=== PATIENT | male | born 1940 | race Caucasian/White ===

== ENCOUNTER 2019-11-03 05:05 | Inpatient (IN) | payer OTHER ==
[2019-11-03] VITALS (50 sets, daily range): BP systolic 63–146; BP diastolic 27–80
[~2019-11-03] VITALS: Ht 167.6 cm; Wt 76.7 kg
[2019-11-03] MEDS ORDERED: SODIUM CHLORIDE 0.9% 1,000 ML IV ONE (05:52)
[2019-11-03] MEDS ORDERED: MORPHINE SULFATE 4 MG/ML CPJ (NOT FOR IM USE) IV STA (05:52)
[2019-11-03] MEDS ORDERED: ONDANSETRON HCL 4MG/2ML INJ IV STA (05:52)
[2019-11-03] MEDS ORDERED: ETOMIDATE 2MG/ML 10ML VIAL IV ONE (06:00)
[2019-11-03] MEDS ORDERED: VECURONIUM BROMIDE 10 MG/VIAL IV ONE (06:00)
[2019-11-03] MEDS ORDERED: PROPOFOL 10MG/ML 100ML 100 ML IV ONE (06:00)
[2019-11-03 06:29] LABS: BASOPHILS % 0.6 % (0.0-2.0); HEMATOCRIT. 44.8 % (42.0-52.0); HEMOGLOBIN. 14.7 g/dL (14.0-18.0); MEAN CORPUSCULAR HEMOGLOBIN 33.5 pg (28.0-32.0); MEAN CORPUSCULAR VOLUME 102.2 fL (80.0-94.0); MEAN PLATELET VOLUME 9.3 fl (7.4-10.4); MONOCYTES % 5.7 % (2.0-8.0); NEUTROPHILS % 84.7 % (40.0-76.0); PLATELET 168 x1000/uL (130-400); RED BLOOD CELL COUNT 4.38 mill/uL (4.7-6.1); RED CELL DISTRIBUTION WIDTH 14.3 % (11.6-14.6)
[2019-11-03 06:37] LABS: CHLORIDE 104 mEq/L (98-107)
[2019-11-03 06:42] LABS: ETHANOL BLOOD 135 mg/dL
[2019-11-03 06:45] LABS: CREATINE KINASE 180 IU/L (39-308)
[2019-11-03 06:47] LABS: *AMPHETAMINES SCREEN URINE NEGATIVE (NEGATIVE); *BARBITURATES SCREEN URINE NEGATIVE (NEGATIVE); *BENZODIAZEPINES SCREEN URINE NEGATIVE (NEGATIVE); *COCAINE SCREEN URINE NEGATIVE (NEGATIVE); CANNABINOID URINE SCREEN NEGATIVE (NEGATIVE); CLARITY URINE CLEAR (CLEAR); COLOR URINE YELLOW (YELLOW); KETONES URINE 1+ (NEGATIVE); LEUKOCYTE ESTERASE URINE NEGATIVE (NEGATIVE); NITRITE URINE NEGATIVE (NEGATIVE); OCCULT BLOOD URINE 2+ (NEGATIVE); OPIATES URINE SCREEN NEGATIVE (NEGATIVE); PROTEIN URINE 1+ (NEGATIVE); SPECIFIC GRAVITY URINE 1.033 (1.005-1.030); UROBILINOGEN URINE 0.2 E.U./dL (0.2-1.0)
[2019-11-03 06:48] LABS: PHENCYCLIDINE URINE SCREEN NEGATIVE (NEGATIVE)
[2019-11-03 06:50] LABS: D-DIMER 18.67 mg/L FEU (<0.50); INR 1.1; PARTIAL THROMBOPLASTIN TIME 26.7 sec (23.4-31.0); PROTHROMBIN TIME 11.1 sec (9.6-11.0)
[2019-11-03 06:55] LABS: METHADONE URINE SCREEN NEGATIVE (NEGATIVE)
[2019-11-03] MEDS ORDERED: MANNITOL 20% 500 ML IV ONE (07:20)
[2019-11-03] MEDS ORDERED: LIDOCAINE HCL/EPINEPHRINE 1%-EPI 1:100,000 20 ML VIAL ONE (07:20)
[2019-11-03] MEDS ORDERED: DEXAMETHASONE 4MG/ML 1ML VIAL ONE (07:20)
[2019-11-03] MEDS ORDERED: THROMBIN (BOVINE) 5000 UNITS/VIAL TOP ONE (07:21)
[2019-11-03] MEDS ORDERED: BACITRACIN 50,000 UNITS/VIAL ONE (07:21)
[2019-11-03] MEDS ORDERED: CEFAZOLIN SODIUM 1000MG/VIAL ONE (07:33)
[2019-11-03] MEDS ORDERED: POTASSIUM CHLORIDE 40MEQ/20ML INJ IV ONE (07:35)
[2019-11-03] MEDS ORDERED: BACITRACIN 15GM TUBE TOP ONE (07:40)
[2019-11-03] MEDS ORDERED: FUROSEMIDE 40MG/4ML VIAL ONE (07:45)
[2019-11-03] MEDS ORDERED: ALBUMIN HUMAN 12.5G/250ML (5%) IV ONE ×2 (08:28→08:29)
[2019-11-03] MEDS ORDERED: HYDROMORPHONE HCL/PF 2MG/ML (OR) ONE ×2 (08:30→08:42)
[2019-11-03] MEDS ORDERED: DEXT 5%/LACTATED RINGERS 1,000 ML IV SCH (08:45)
[2019-11-03] MEDS ORDERED: LEVETIRACETAM 500 MG in SODIUM CHLORIDE 0.9% 100 ML IV SCH (08:45)
[2019-11-03] MEDS ORDERED: NICARDIPINE 100 MG in SODIUM CHLORIDE 0.9% 60 ML IV PRN ×2 (09:15→10:00)
[2019-11-03] MEDS ORDERED: DEXTROSE 50% WATER 50ML SYRINGE IV PRN ×4 (09:15→22:45)
[2019-11-03] MEDS ORDERED: IPRATROPIUM/ALBUTEROL 0.5-3(2.5)MG/3ML NEB HHN PRN (09:15)
[2019-11-03] MEDS ORDERED: ONDANSETRON HCL 4MG/2ML INJ IV PRN (09:15)
[2019-11-03] MEDS ORDERED: SODIUM CHLORIDE 0.9% 500 ML IV ONE ×2 (09:23→10:04)
[2019-11-03] MEDS ORDERED: BLOOD SUGAR DIAGNOSTIC STRIP TEST SCH (09:30)
[2019-11-03] MEDS ORDERED: INSULIN LISPRO 100 UNITS/ML SUBCUT SCH (09:30)
[2019-11-03 10:14] LABS: BG BASE EXCESS -19.4 mmol/L (-2.0-2.0); BG CARBOXYHEMOGLOBIN 0.3 % (0.5-1.5); BG DEOXYHEMOGLOBIN 1.4 % (0.0-5.0); BG FRACTION INSPIRED OXYGEN 100; BG HCO3 ACT 9.2 mmol/L (22.0-26.0); BG METHEMOGLOBIN 0.3 % (0.0-1.5); BG OXYGEN SATURATION 98.6 % (92.0-98.5); BG PCO2 31.1 mmHg (35.0-45.0); BG PH 7.089 (7.350-7.450); BG PO2 216.3 mmHg (75.0-100.0); BG SAMPLE SITE RIGHT RADIAL; BG TIDAL VOLUME(mL) 500 mL; BG VENT MODE VENT - A/C; BG VENT RATE 14 set
[2019-11-03] MEDS ORDERED: ALBUMIN HUMAN 25GM/500ML (5%) IV NR (10:15)
[2019-11-03] MEDS ORDERED: NOREPINEPHRINE 4 MG in DEXT 5% WATER 246 ML IV PRN ×2 (10:15→13:00)
[2019-11-03] MEDS ORDERED: SODIUM BICARBONATE 8.4% 1 MEQ/ML 50ML SYR IV NR (10:15)
[2019-11-03] MEDS ORDERED: DEXT IV SCH ×3 (10:18→12:00)
[2019-11-03] MEDS ORDERED: LACTATED RINGERS IV SCH ×3 (10:18→12:00)
[2019-11-03] MEDS ORDERED: SODIUM BICARBONATE IV SCH ×3 (10:18→12:00)
[2019-11-03] MEDS ORDERED: SODIUM BICARBONATE 8.4% 1 MEQ/ML 50ML SYR IV ONE (10:21)
[2019-11-03] MEDS ORDERED: CALCIUM CHLORIDE IV NR (10:30)
[2019-11-03] MEDS ORDERED: DEXT 5% IV NR (10:30)
[2019-11-03] MEDS ORDERED: NOREPINEPHRINE 4MG/250ML PMX 250 ML IV PRN (10:30)
[2019-11-03] MEDS ORDERED: WATER IV NR (10:30)
[2019-11-03] MEDS ORDERED: NOREPINEPHRINE 16 MG in DEXT 5% WATER 234 ML IV PRN (10:45)
[2019-11-03] MEDS ORDERED: ALBUMIN HUMAN 12.5G/250ML (5%) IV NR (10:45)
[2019-11-03] MEDS: LEVETIRACETAM 500MG PREMIX 100 ML IV SCH ×2 (11:30→21:56)
[2019-11-03] MEDS ORDERED: INSULIN REGULAR (DRIP) 100 UNITS in SODIUM CHLORIDE 0.9% 99 ML IV PRN (11:30)
[2019-11-03] MEDS ORDERED: INSULIN REGULAR (DRIP) 100 UNITS in SODIUM CHLORIDE 0.9% 100 ML IV SCH (11:35)
[2019-11-03 11:46] LABS: BG BASE EXCESS -15.2 mmol/L (-2.0-2.0); BG CARBOXYHEMOGLOBIN 0.2 % (0.5-1.5); BG DEOXYHEMOGLOBIN 2.6 % (0.0-5.0); BG FRACTION INSPIRED OXYGEN 80; BG HCO3 ACT 10.6 mmol/L (22.0-26.0); BG METHEMOGLOBIN 0.7 % (0.0-1.5); BG OXYGEN SATURATION 97.4 % (92.0-98.5); BG OXYHEMOGLOBIN 96.5 % (94.0-97.0); BG PCO2 25.4 mmHg (35.0-45.0); BG PH 7.237 (7.350-7.450); BG PO2 120.9 mmHg (75.0-100.0); BG SAMPLE SITE A-LINE; BG TIDAL VOLUME(mL) 500 mL; BG TOTAL HEMOGLOBIN 11.5 g/dL (12.0-18.0); BG VENT MODE VENT - A/C; BG VENT RATE 18 set
[2019-11-03] MEDS ORDERED: SODIUM BICARBONATE 100 MEQ in SODIUM CHLORIDE 0.45% 1,000 ML IV SCH (12:00)
[2019-11-03] MEDS: BLOOD SUGAR DIAGNOSTIC STRIP TEST SCH ×9 (12:30→20:30)
[2019-11-03 12:57] LABS: CHLORIDE 114 mEq/L (98-107)
[2019-11-03 13:06] LABS: CREATINE KINASE 173 IU/L (39-308)
[2019-11-03 13:07] LABS: CREATINE KINASE MB FRACTION 4.8 ng/mL (0.5-3.6)
[2019-11-03] MEDS: CEFAZOLIN 1000MG PREMIX 50 ML IV SCH ×2 (14:00→21:39)
[2019-11-03] MEDS ORDERED: CEFAZOLIN SODIUM 1000MG/VIAL IV SCH (14:00)
[2019-11-03] MEDS: FAMOTIDINE 20MG/2ML VIAL IV SCH (17:00)
[2019-11-03 17:38] LABS: BG BASE EXCESS -4.2 mmol/L (-2.0-2.0); BG DEOXYHEMOGLOBIN 1.8 % (0.0-5.0); BG FRACTION INSPIRED OXYGEN 80; BG HCO3 ACT 18.7 mmol/L (22.0-26.0); BG METHEMOGLOBIN 0.1 % (0.0-1.5); BG OXYGEN SATURATION 98.2 % (92.0-98.5); BG OXYHEMOGLOBIN 98.1 % (94.0-97.0); BG PCO2 27.7 mmHg (35.0-45.0); BG PH 7.448 (7.350-7.450); BG PO2 132.2 mmHg (75.0-100.0); BG SAMPLE SITE A-LINE; BG TIDAL VOLUME(mL) 500 mL; BG TOTAL HEMOGLOBIN 11.2 g/dL (12.0-18.0); BG VENT MODE VENT - A/C; BG VENT RATE 18 set
[2019-11-03] MEDS: MORPHINE SULFATE 4 MG/ML CPJ (NOT FOR IM USE) IV PRN (18:45)
[2019-11-03 21:05] LABS: CHLORIDE 118 mEq/L (98-107)
[2019-11-03 21:14] LABS: CREATINE KINASE 255 IU/L (39-308)
[2019-11-03 21:16] LABS: CREATINE KINASE MB FRACTION 5.4 ng/mL (0.5-3.6)
[2019-11-03 21:22] LABS: PHOSPHORUS 0.8 mg/dL (2.5-4.9)
[2019-11-03] MEDS ORDERED: IOHEXOL-350 100 ML BOTTLE ONE (21:57)
[2019-11-04] VITALS (92 sets, daily range): BP systolic 90–165; BP diastolic 28–79
[2019-11-04] MEDS: BLOOD SUGAR DIAGNOSTIC STRIP TEST SCH ×7 (00:55→23:23)
[2019-11-04] MEDS ORDERED: POTASSIUM PHOS,M-BASIC-D-BASIC 20 MMOL in DEXT 5% WATER 243.3333 ML IV NR (01:00)
[2019-11-04] MEDS: INSULIN LISPRO 100 UNITS/ML SUBCUT SCH ×7 (01:01→23:26)
[2019-11-04 05:58] LABS: CHLORIDE 116 mEq/L (98-107)
[2019-11-04 06:08] LABS: BASOPHILS % 0.2 % (0.0-2.0); HEMATOCRIT. 30.2 % (42.0-52.0); HEMOGLOBIN. 10.3 g/dL (14.0-18.0); LYMPHOCYTES % 9.7 % (20.0-50.0); MEAN CORPUSCULAR HEMOGLOBIN 33.8 pg (28.0-32.0); MEAN CORPUSCULAR VOLUME 99.3 fL (80.0-94.0); MEAN PLATELET VOLUME 9.2 fl (7.4-10.4); MONOCYTES % 4.8 % (2.0-8.0); NEUTROPHILS % 85.3 % (40.0-76.0); PLATELET 117 x1000/uL (130-400); RED BLOOD CELL COUNT 3.04 mill/uL (4.7-6.1); RED CELL DISTRIBUTION WIDTH 14.3 % (11.6-14.6)
[2019-11-04 06:12] LABS: PHOSPHORUS 3.1 mg/dL (2.5-4.9)
[2019-11-04] MEDS: CEFAZOLIN 1000MG PREMIX 50 ML IV SCH (06:45)
[2019-11-04] MEDS: LEVETIRACETAM 500MG PREMIX 100 ML IV SCH ×2 (09:14→20:37)
[2019-11-04] MEDS: POTASSIUM CHLORIDE IV SCH ×2 (09:14→20:58)
[2019-11-04] MEDS: SODIUM BICARBONATE IV SCH ×2 (09:14→20:58)
[2019-11-04] MEDS: FAMOTIDINE 20MG/2ML VIAL IV SCH (09:14)
[2019-11-04] MEDS: [UNRECOGNIZED DRUG - OTHER] IV SCH ×2 (09:14→20:58)
[2019-11-04 10:02] LABS: BG BASE EXCESS -4.7 mmol/L (-2.0-2.0); BG CARBOXYHEMOGLOBIN 0.3 % (0.5-1.5); BG FRACTION INSPIRED OXYGEN 80; BG HCO3 ACT 19.1 mmol/L (22.0-26.0); BG METHEMOGLOBIN 0.3 % (0.0-1.5); BG OXYHEMOGLOBIN 97.4 % (94.0-97.0); BG PCO2 30.4 mmHg (35.0-45.0); BG PH 7.415 (7.350-7.450); BG PO2 141.9 mmHg (75.0-100.0); BG SAMPLE SITE A-LINE; BG TIDAL VOLUME(mL) 800 mL; BG TOTAL HEMOGLOBIN 9.6 g/dL (12.0-18.0); BG VENT MODE VENT - A/C; BG VENT RATE 18 set
[2019-11-04] MEDS ORDERED: VANCOMYCIN 1 G PREMIX 200 ML IV NR (12:00)
[2019-11-04 13:31] LABS: CHLORIDE 116 mEq/L (98-107)
[2019-11-04] MEDS ORDERED: PIPERACILLIN/TAZOBACTAM 3.375 G in DEXT 5% WATER 100 ML IV SCH (14:00)
[2019-11-04] MEDS ORDERED: INSULIN GLARGINE UD 100 UNITS/ML SYR SUBCUT NR (14:00)
[2019-11-04] MEDS ORDERED: VANCOMYCIN 500 MG PREMIX 100 ML IV SCH (16:00)
[2019-11-04] MEDS: CEFTRIAXONE 1,000 MG in DEXTROSE 5% WATER 50 ML IV SCH (16:40)
[2019-11-04] MEDS: METRONIDAZOLE 500MG TABLET PO SCH (20:37)
[2019-11-05] VITALS (93 sets, daily range): BP systolic 93–154; BP diastolic 41–78
[2019-11-05] MEDS ORDERED: VANCOMYCIN 750 MG PREMIX 150 ML IV SCH
[2019-11-05] MEDS: BLOOD SUGAR DIAGNOSTIC STRIP TEST SCH ×6 (04:00→23:09)
[2019-11-05] MEDS: INSULIN LISPRO 100 UNITS/ML SUBCUT SCH ×6 (04:32→23:25)
[2019-11-05 05:21] LABS: CHLORIDE 117 mEq/L (98-107)
[2019-11-05] MEDS: VANCOMYCIN 1500MG in DEXTROSE 5% WATER 250ML IV SCH ×2 (05:24→23:10)
[2019-11-05 05:26] LABS: BASOPHILS % 0.2 % (0.0-2.0); HEMATOCRIT. 28.4 % (42.0-52.0); HEMOGLOBIN. 9.8 g/dL (14.0-18.0); LYMPHOCYTES % 10.5 % (20.0-50.0); MEAN CORPUSCULAR HEMOGLOBIN 34.8 pg (28.0-32.0); MEAN CORPUSCULAR VOLUME 100.5 fL (80.0-94.0); MEAN PLATELET VOLUME 8.9 fl (7.4-10.4); MONOCYTES % 4.2 % (2.0-8.0); NEUTROPHILS % 85.1 % (40.0-76.0); PLATELET 93 x1000/uL (130-400); RED BLOOD CELL COUNT 2.82 mill/uL (4.7-6.1); RED CELL DISTRIBUTION WIDTH 14.9 % (11.6-14.6)
[2019-11-05] MEDS: POTASSIUM CHLORIDE IV SCH (07:22)
[2019-11-05] MEDS: SODIUM BICARBONATE IV SCH (07:22)
[2019-11-05] MEDS: [UNRECOGNIZED DRUG - OTHER] IV SCH (07:22)
[2019-11-05] MEDS: LEVETIRACETAM 500MG PREMIX 100 ML IV SCH ×2 (08:35→20:07)
[2019-11-05] MEDS: METRONIDAZOLE 500MG TABLET PO SCH ×2 (08:35→20:07)
[2019-11-05] MEDS: FAMOTIDINE 20MG/2ML VIAL IV SCH (08:35)
[2019-11-05 09:39] LABS: BG BASE EXCESS -0.8 mmol/L (-2.0-2.0); BG CARBOXYHEMOGLOBIN 0.3 % (0.5-1.5); BG DEOXYHEMOGLOBIN 2.7 % (0.0-5.0); BG FRACTION INSPIRED OXYGEN 60; BG HCO3 ACT 22.7 mmol/L (22.0-26.0); BG METHEMOGLOBIN 0.2 % (0.0-1.5); BG OXYGEN SATURATION 97.3 % (92.0-98.5); BG OXYHEMOGLOBIN 96.8 % (94.0-97.0); BG PCO2 33.3 mmHg (35.0-45.0); BG PH 7.452 (7.350-7.450); BG PO2 104.7 mmHg (75.0-100.0); BG SAMPLE SITE RIGHT RADIAL; BG TIDAL VOLUME(mL) 500 mL; BG TOTAL HEMOGLOBIN 9.9 g/dL (12.0-18.0); BG VENT MODE VENT - A/C; BG VENT RATE 18 set
[2019-11-05] MEDS: INSULIN GLARGINE UD 100 UNITS/ML SYR SUBCUT SCH (09:56)
[2019-11-05] MEDS: CEFTRIAXONE 1,000 MG in DEXTROSE 5% WATER 50 ML IV SCH (16:36)
[2019-11-06] VITALS (94 sets, daily range): BP systolic 101–139; BP diastolic 42–74
[2019-11-06] MEDS: BLOOD SUGAR DIAGNOSTIC STRIP TEST SCH ×6 (04:00→23:23)
[2019-11-06] MEDS: INSULIN LISPRO 100 UNITS/ML SUBCUT SCH ×6 (04:45→23:23)
[2019-11-06 05:42] LABS: HEMATOCRIT 30.5 % (42.0-52.0); HEMOGLOBIN 10.3 g/dL (14.0-18.0); MEAN CORPUSCULAR HEMOGLOBIN 34.2 pg (28.0-32.0); MEAN CORPUSCULAR VOLUME 100.9 fL (80.0-94.0); PLATELET 105 x1000/uL (130-400); RED BLOOD CELL COUNT 3.02 mill/uL (4.7-6.1); RED CELL DISTRIBUTION WIDTH 14.7 % (11.6-14.6)
[2019-11-06 05:46] LABS: CHLORIDE 116 mEq/L (98-107)
[2019-11-06] MEDS: FAMOTIDINE 20MG/2ML VIAL IV SCH (08:35)
[2019-11-06] MEDS: METRONIDAZOLE 500MG TABLET PO SCH ×2 (08:35→20:02)
[2019-11-06] MEDS: LEVETIRACETAM 500MG PREMIX 100 ML IV SCH ×2 (08:35→20:02)
[2019-11-06] MEDS: INSULIN GLARGINE UD 100 UNITS/ML SYR SUBCUT SCH ×2 (11:03→21:40)
[2019-11-06] MEDS: VANCOMYCIN 1500MG in DEXTROSE 5% WATER 250ML IV SCH ×2 (13:05→22:17)
[2019-11-06 14:20] LABS: BG BASE EXCESS -0.3 mmol/L (-2.0-2.0); BG CARBOXYHEMOGLOBIN 0.3 % (0.5-1.5); BG DEOXYHEMOGLOBIN 4.6 % (0.0-5.0); BG FRACTION INSPIRED OXYGEN 60; BG HCO3 ACT 23.3 mmol/L (22.0-26.0); BG METHEMOGLOBIN 0.3 % (0.0-1.5); BG OXYGEN SATURATION 95.4 % (92.0-98.5); BG OXYHEMOGLOBIN 94.8 % (94.0-97.0); BG PCO2 34.4 mmHg (35.0-45.0); BG PH 7.449 (7.350-7.450); BG PO2 80.5 mmHg (75.0-100.0); BG PRESSURE SUPPORT 10; BG SAMPLE SITE RIGHT RADIAL; BG TOTAL HEMOGLOBIN 10.4 g/dL (12.0-18.0); BG VENT MODE VENT - CPAP
[2019-11-06] MEDS: CEFTRIAXONE 1,000 MG in DEXTROSE 5% WATER 50 ML IV SCH (17:37)
[2019-11-07] VITALS (65 sets, daily range): BP systolic 94–144; BP diastolic 49–102
[2019-11-07] MEDS: INSULIN LISPRO 100 UNITS/ML SUBCUT SCH ×6 (03:27→23:36)
[2019-11-07] MEDS: BLOOD SUGAR DIAGNOSTIC STRIP TEST SCH ×6 (03:28→23:34)
[2019-11-07 06:01] LABS: CHLORIDE 121 mEq/L (98-107)
[2019-11-07 07:43] LABS: HEMATOCRIT 32.6 % (42.0-52.0); MEAN CORPUSCULAR HEMOGLOBIN 34.1 pg (28.0-32.0); MEAN CORPUSCULAR VOLUME 101.4 fL (80.0-94.0); PLATELET 119 x1000/uL (130-400); RED BLOOD CELL COUNT 3.22 mill/uL (4.7-6.1); RED CELL DISTRIBUTION WIDTH 14.7 % (11.6-14.6)
[2019-11-07 09:14] LABS: BG BASE EXCESS -0.9 mmol/L (-2.0-2.0); BG CARBOXYHEMOGLOBIN 0.2 % (0.5-1.5); BG DEOXYHEMOGLOBIN 4.8 % (0.0-5.0); BG FRACTION INSPIRED OXYGEN 60; BG HCO3 ACT 22.2 mmol/L (22.0-26.0); BG METHEMOGLOBIN 0.3 % (0.0-1.5); BG OXYGEN SATURATION 95.2 % (92.0-98.5); BG OXYHEMOGLOBIN 94.7 % (94.0-97.0); BG PCO2 31.4 mmHg (35.0-45.0); BG PEEP (cmH2O) 0 cmH2O; BG PH 7.468 (7.350-7.450); BG PO2 76.8 mmHg (75.0-100.0); BG SAMPLE SITE RIGHT RADIAL; BG TIDAL VOLUME(mL) 500 mL; BG TOTAL HEMOGLOBIN 10.5 g/dL (12.0-18.0); BG VENT MODE VENT - A/C; BG VENT RATE 18 set
[2019-11-07] MEDS: METRONIDAZOLE 500MG TABLET PO SCH ×2 (09:49→20:48)
[2019-11-07] MEDS: LEVETIRACETAM 500MG PREMIX 100 ML IV SCH ×2 (09:49→20:48)
[2019-11-07] MEDS: FAMOTIDINE 20MG/2ML VIAL IV SCH (09:49)
[2019-11-07] MEDS: INSULIN GLARGINE UD 100 UNITS/ML SYR SUBCUT SCH ×2 (11:17→20:49)
[2019-11-07] MEDS: VANCOMYCIN 1500MG in DEXTROSE 5% WATER 250ML IV SCH ×2 (11:21→22:24)
[2019-11-07] MEDS: CEFTRIAXONE 1,000 MG in DEXTROSE 5% WATER 50 ML IV SCH (17:17)
[2019-11-07] MEDS: LEVOFLOXACIN 500MG TABLET PO SCH (17:20)
[2019-11-07] MEDS: MORPHINE SULFATE 4 MG/ML CPJ (NOT FOR IM USE) IV PRN ×3 (18:14→22:24)
[2019-11-07] MEDS: LORAZEPAM 2MG/ML CPJ IV PRN (20:50)
[2019-11-07 22:04] LABS: BG CARBOXYHEMOGLOBIN 0.3 % (0.5-1.5); BG DEOXYHEMOGLOBIN 3.9 % (0.0-5.0); BG FRACTION INSPIRED OXYGEN 100; BG HCO3 ACT 24.8 mmol/L (22.0-26.0); BG METHEMOGLOBIN 0.3 % (0.0-1.5); BG OXYGEN SATURATION 96.1 % (92.0-98.5); BG OXYHEMOGLOBIN 95.5 % (94.0-97.0); BG PCO2 36.7 mmHg (35.0-45.0); BG PH 7.448 (7.350-7.450); BG PO2 83.1 mmHg (75.0-100.0); BG SAMPLE SITE RIGHT BRACHIAL; BG TIDAL VOLUME(mL) 500 mL; BG TOTAL HEMOGLOBIN 11.3 g/dL (12.0-18.0); BG VENT MODE VENT - A/C; BG VENT RATE 18 set
[2019-11-07] MEDS: ACETAMINOPHEN 650MG/20.3ML UDC NG PRN (22:44)
[2019-11-08] VITALS (73 sets, daily range): BP systolic 96–147; BP diastolic 45–79
[2019-11-08] MEDS: IPRATROPIUM BROMIDE (0.02%) 0.5MG/2.5ML NEB HHN SCH ×4 (02:11→19:52)
[2019-11-08] MEDS: BLOOD SUGAR DIAGNOSTIC STRIP TEST SCH ×6 (04:14→23:42)
[2019-11-08] MEDS: INSULIN LISPRO 100 UNITS/ML SUBCUT SCH ×6 (04:28→23:42)
[2019-11-08] MEDS: LORAZEPAM 2MG/ML CPJ IV PRN (04:56)
[2019-11-08 05:53] LABS: HEMATOCRIT 31.9 % (42.0-52.0); HEMOGLOBIN 10.2 g/dL (14.0-18.0); MEAN CORPUSCULAR HEMOGLOBIN 33.2 pg (28.0-32.0); MEAN CORPUSCULAR VOLUME 103.5 fL (80.0-94.0); PLATELET 149 x1000/uL (130-400); RED BLOOD CELL COUNT 3.09 mill/uL (4.7-6.1); RED CELL DISTRIBUTION WIDTH 14.8 % (11.6-14.6)
[2019-11-08] MEDS: LEVETIRACETAM 500MG PREMIX 100 ML IV SCH ×2 (09:54→21:18)
[2019-11-08] MEDS: FAMOTIDINE 20MG/2ML VIAL IV SCH (09:55)
[2019-11-08] MEDS: METRONIDAZOLE 500MG TABLET PO SCH ×2 (09:55→21:18)
[2019-11-08] MEDS: VANCOMYCIN 1500MG in DEXTROSE 5% WATER 250ML IV SCH (11:08)
[2019-11-08] MEDS: INSULIN GLARGINE UD 100 UNITS/ML SYR SUBCUT SCH ×2 (11:10→21:54)
[2019-11-08] MEDS: LEVOFLOXACIN 500MG TABLET PO SCH (11:14)
[2019-11-08 12:02] LABS: BG BASE EXCESS -2.7 mmol/L (-2.0-2.0); BG CARBOXYHEMOGLOBIN 0.3 % (0.5-1.5); BG DEOXYHEMOGLOBIN 3.3 % (0.0-5.0); BG FRACTION INSPIRED OXYGEN 100; BG HCO3 ACT 21.7 mmol/L (22.0-26.0); BG METHEMOGLOBIN 0.3 % (0.0-1.5); BG OXYGEN SATURATION 96.7 % (92.0-98.5); BG OXYHEMOGLOBIN 96.1 % (94.0-97.0); BG PCO2 36.3 mmHg (35.0-45.0); BG PH 7.395 (7.350-7.450); BG SAMPLE SITE RIGHT BRACHIAL; BG TIDAL VOLUME(mL) 500 mL; BG TOTAL HEMOGLOBIN 10.3 g/dL (12.0-18.0); BG VENT MODE VENT - A/C; BG VENT RATE 18 set
[2019-11-08] MEDS: CEFTRIAXONE 1,000 MG in DEXTROSE 5% WATER 50 ML IV SCH (17:15)
[2019-11-09] VITALS (94 sets, daily range): BP systolic 98–158; BP diastolic 49–76
[2019-11-09] MEDS: IPRATROPIUM BROMIDE (0.02%) 0.5MG/2.5ML NEB HHN SCH ×4 (05:21→20:31)
[2019-11-09 05:37] LABS: BASOPHILS % 0.5 % (0.0-2.0); EOSINOPHILS % 1.2 % (0.0-5.0); HEMATOCRIT. 31.2 % (42.0-52.0); HEMOGLOBIN. 10.2 g/dL (14.0-18.0); LYMPHOCYTES % 9.8 % (20.0-50.0); MEAN CORPUSCULAR HEMOGLOBIN 33.7 pg (28.0-32.0); MEAN CORPUSCULAR VOLUME 102.6 fL (80.0-94.0); MEAN PLATELET VOLUME 9.6 fl (7.4-10.4); MONOCYTES % 5.5 % (2.0-8.0); PLATELET 187 x1000/uL (130-400); RED BLOOD CELL COUNT 3.04 mill/uL (4.7-6.1); RED CELL DISTRIBUTION WIDTH 14.9 % (11.6-14.6)
[2019-11-09] MEDS: BLOOD SUGAR DIAGNOSTIC STRIP TEST SCH ×4 (05:46→23:58)
[2019-11-09] MEDS: INSULIN LISPRO 100 UNITS/ML SUBCUT SCH ×5 (05:46→23:58)
[2019-11-09] MEDS: LORAZEPAM 2MG/ML CPJ IV PRN ×2 (08:02→16:30)
[2019-11-09] MEDS: METRONIDAZOLE 500MG TABLET PO SCH ×2 (08:03→20:26)
[2019-11-09] MEDS: ACETAMINOPHEN 650MG/20.3ML UDC NG PRN ×2 (08:03→12:37)
[2019-11-09] MEDS: FAMOTIDINE 20MG/2ML VIAL IV SCH (08:03)
[2019-11-09] MEDS: LEVETIRACETAM 500MG PREMIX 100 ML IV SCH ×2 (08:03→20:25)
[2019-11-09] MEDS ORDERED: LEVOFLOXACIN 250MG TABLET PO SCH (11:00)
[2019-11-09] MEDS: INSULIN GLARGINE UD 100 UNITS/ML SYR SUBCUT SCH ×2 (11:11→21:28)
[2019-11-09] MEDS ORDERED: SODIUM CHLORIDE 0.45% 500 ML IV NR (15:15)
[2019-11-09] MEDS ORDERED: SODIUM CHLORIDE 0.9% 250 ML IV ONE (16:30)
[2019-11-09] MEDS ORDERED: VANCOMYCIN 1 G PREMIX 200 ML IV NR (17:00)
[2019-11-09] MEDS: CEFAZOLIN 2,000 MG in DEXT 5% WATER 100 ML IV SCH (18:22)
[2019-11-09 20:36] LABS: CLARITY URINE CLOUDY (CLEAR); COLOR URINE YELLOW (YELLOW); KETONES URINE NEGATIVE (NEGATIVE); LEUKOCYTE ESTERASE URINE NEGATIVE (NEGATIVE); NITRITE URINE NEGATIVE (NEGATIVE); OCCULT BLOOD URINE 3+ (NEGATIVE); PROTEIN URINE 1+ (NEGATIVE); SPECIFIC GRAVITY URINE 1.016 (1.005-1.030); UROBILINOGEN URINE 0.2 E.U./dL (0.2-1.0)
[2019-11-10] VITALS (91 sets, daily range): BP systolic 107–165; BP diastolic 53–79
[2019-11-10] MEDS: IPRATROPIUM BROMIDE (0.02%) 0.5MG/2.5ML NEB HHN SCH ×4 (02:15→20:26)
[2019-11-10] MEDS: HYDRALAZINE 20MG/ML VIAL IV PRN ×2 (04:54→23:09)
[2019-11-10] MEDS: INSULIN LISPRO 100 UNITS/ML SUBCUT SCH ×4 (05:31→23:08)
[2019-11-10] MEDS: BLOOD SUGAR DIAGNOSTIC STRIP TEST SCH ×4 (05:31→23:15)
[2019-11-10] MEDS: LORAZEPAM 2MG/ML CPJ IV PRN ×4 (05:47→23:08)
[2019-11-10 05:48] LABS: HEMATOCRIT. 26.7 % (42.0-52.0); HEMOGLOBIN. 8.6 g/dL (14.0-18.0); MEAN PLATELET VOLUME 9.7 fl (7.4-10.4); PLATELET 173 x1000/uL (130-400); RED BLOOD CELL COUNT 2.62 mill/uL (4.7-6.1); RED CELL DISTRIBUTION WIDTH 15.1 % (11.6-14.6)
[2019-11-10] MEDS: CEFAZOLIN 2,000 MG in DEXT 5% WATER 100 ML IV SCH ×2 (06:29→17:48)
[2019-11-10] MEDS: MORPHINE SULFATE 4 MG/ML CPJ (NOT FOR IM USE) IV PRN ×2 (06:35→21:36)
[2019-11-10] MEDS: LEVETIRACETAM 500MG PREMIX 100 ML IV SCH ×2 (09:19→21:30)
[2019-11-10] MEDS: FAMOTIDINE 20MG/2ML VIAL IV SCH (09:19)
[2019-11-10 09:46] LABS: PLATELET ESTIMATE NORMAL
[2019-11-10] MEDS: INSULIN GLARGINE UD 100 UNITS/ML SYR SUBCUT SCH ×2 (10:17→23:08)
[2019-11-10 15:12] LABS: BG BASE EXCESS -5.9 mmol/L (-2.0-2.0); BG CARBOXYHEMOGLOBIN 0.3 % (0.5-1.5); BG DEOXYHEMOGLOBIN 1.1 % (0.0-5.0); BG FRACTION INSPIRED OXYGEN 90; BG HCO3 ACT 18.1 mmol/L (22.0-26.0); BG METHEMOGLOBIN 0.5 % (0.0-1.5); BG OXYGEN SATURATION 98.9 % (92.0-98.5); BG OXYHEMOGLOBIN 98.1 % (94.0-97.0); BG PCO2 30.1 mmHg (35.0-45.0); BG PH 7.396 (7.350-7.450); BG PO2 197.1 mmHg (75.0-100.0); BG SAMPLE SITE RIGHT BRACHIAL; BG TIDAL VOLUME(mL) 500 mL; BG TOTAL HEMOGLOBIN 10.1 g/dL (12.0-18.0); BG VENT MODE VENT - A/C; BG VENT RATE 16 set
[2019-11-10] MEDS: SODIUM CHLORIDE 0.45% 1,000 ML IV SCH (15:39)
[2019-11-11] VITALS (93 sets, daily range): BP systolic 92–158; BP diastolic 20–72
[2019-11-11] MEDS ORDERED: FUROSEMIDE 40MG/4ML VIAL IVP SCH (00:30)
[2019-11-11] MEDS: SODIUM CHLORIDE 0.45% 1,000 ML IV SCH (00:42)
[2019-11-11] MEDS ORDERED: DIGOXIN 500MCG/2ML AMP IV SCH (01:00)
[2019-11-11] MEDS: MORPHINE SULFATE 4 MG/ML CPJ (NOT FOR IM USE) IV PRN ×2 (02:07→14:52)
[2019-11-11] MEDS: ACETAMINOPHEN 650MG/20.3ML UDC NG PRN ×2 (02:08→20:24)
[2019-11-11] MEDS: IPRATROPIUM BROMIDE (0.02%) 0.5MG/2.5ML NEB HHN SCH ×3 (02:15→20:16)
[2019-11-11 05:41] LABS: BASOPHILS % 0.4 % (0.0-2.0); EOSINOPHILS % 0.7 % (0.0-5.0); HEMATOCRIT. 31.9 % (42.0-52.0); HEMOGLOBIN. 10.3 g/dL (14.0-18.0); LYMPHOCYTES % 7.8 % (20.0-50.0); MEAN PLATELET VOLUME 9.7 fl (7.4-10.4); MONOCYTES % 5.1 % (2.0-8.0); PLATELET 229 x1000/uL (130-400); RED BLOOD CELL COUNT 3.13 mill/uL (4.7-6.1); RED CELL DISTRIBUTION WIDTH 15.5 % (11.6-14.6)
[2019-11-11] MEDS: BLOOD SUGAR DIAGNOSTIC STRIP TEST SCH ×4 (06:00→23:24)
[2019-11-11] MEDS: INSULIN LISPRO 100 UNITS/ML SUBCUT SCH ×4 (06:09→23:24)
[2019-11-11] MEDS: CEFAZOLIN 2,000 MG in DEXT 5% WATER 100 ML IV SCH ×2 (06:11→17:54)
[2019-11-11] MEDS: FAMOTIDINE 20MG/2ML VIAL IV SCH (09:40)
[2019-11-11] MEDS: LEVETIRACETAM 500MG PREMIX 100 ML IV SCH ×2 (09:40→20:15)
[2019-11-11 09:56] LABS: BG BASE EXCESS -6.4 mmol/L (-2.0-2.0); BG CARBOXYHEMOGLOBIN 0.3 % (0.5-1.5); BG DEOXYHEMOGLOBIN 3.1 % (0.0-5.0); BG FRACTION INSPIRED OXYGEN 90; BG HCO3 ACT 18.4 mmol/L (22.0-26.0); BG METHEMOGLOBIN 0.3 % (0.0-1.5); BG OXYGEN SATURATION 96.9 % (92.0-98.5); BG OXYHEMOGLOBIN 96.3 % (94.0-97.0); BG PCO2 34.2 mmHg (35.0-45.0); BG PH 7.349 (7.350-7.450); BG PO2 95.5 mmHg (75.0-100.0); BG SAMPLE SITE RIGHT RADIAL; BG TIDAL VOLUME(mL) 500 mL; BG TOTAL HEMOGLOBIN 10.4 g/dL (12.0-18.0); BG VENT MODE VENT - A/C; BG VENT RATE 16 set
[2019-11-11] MEDS ORDERED: SODIUM BICARBONATE 8.4% 1 MEQ/ML 50ML SYR IV NR (11:00)
[2019-11-11] MEDS ORDERED: LEVOFLOXACIN 250MG TABLET PO SCH (11:00)
[2019-11-11] MEDS ORDERED: SODIUM POLYSTYRENE SULFONATE 15 G/60 ML BOT PO NR (11:00)
[2019-11-11] MEDS ORDERED: DEXTROSE 50% WATER 50ML SYRINGE IV NR (11:00)
[2019-11-11] MEDS ORDERED: CALCIUM GLUCONATE 1,000 MG in DEXT 5% WATER 90 ML IV SCH (11:00)
[2019-11-11] MEDS ORDERED: INSULIN REGULAR (HUMULIN R) 300UNITS/3ML IV NR (11:00)
[2019-11-11] MEDS: INSULIN GLARGINE UD 100 UNITS/ML SYR SUBCUT SCH ×2 (11:12→21:22)
[2019-11-11] MEDS: LORAZEPAM 2MG/ML CPJ IV PRN (11:24)
[2019-11-11] MEDS: DILTIAZEM HCL 30MG TABLET PO SCH ×2 (13:05→21:09)
[2019-11-11 14:39] LABS: BG BASE EXCESS -5.2 mmol/L (-2.0-2.0); BG CARBOXYHEMOGLOBIN 0.3 % (0.5-1.5); BG DEOXYHEMOGLOBIN 3.2 % (0.0-5.0); BG FRACTION INSPIRED OXYGEN 90; BG HCO3 ACT 19.4 mmol/L (22.0-26.0); BG METHEMOGLOBIN 0.5 % (0.0-1.5); BG OXYGEN SATURATION 96.8 % (92.0-98.5); BG PCO2 34.1 mmHg (35.0-45.0); BG PH 7.373 (7.350-7.450); BG PO2 98.8 mmHg (75.0-100.0); BG SAMPLE SITE RIGHT RADIAL; BG TIDAL VOLUME(mL) 500 mL; BG TOTAL HEMOGLOBIN 9.8 g/dL (12.0-18.0); BG VENT MODE VENT - A/C; BG VENT RATE 16 set
[2019-11-11] MEDS ORDERED: DILTIAZEM HCL 5MG/ML 5ML VIAL IV NR ×2 (16:15)
[2019-11-11] MEDS: METOCLOPRAMIDE HCL 10MG/2ML VIAL IV SCH ×2 (18:27→23:12)
[2019-11-12] VITALS (69 sets, daily range): BP systolic 98–142; BP diastolic 39–85
[2019-11-12] MEDS: IPRATROPIUM BROMIDE (0.02%) 0.5MG/2.5ML NEB HHN SCH ×4 (03:18→20:44)
[2019-11-12] MEDS: SODIUM CHLORIDE 0.45% 1,000 ML IV SCH (03:22)
[2019-11-12] MEDS: BLOOD SUGAR DIAGNOSTIC STRIP TEST SCH ×4 (05:07→23:15)
[2019-11-12] MEDS: METOCLOPRAMIDE HCL 10MG/2ML VIAL IV SCH ×4 (05:07→23:14)
[2019-11-12] MEDS: DILTIAZEM HCL 30MG TABLET PO SCH ×3 (05:07→21:33)
[2019-11-12] MEDS: CEFAZOLIN 2,000 MG in DEXT 5% WATER 100 ML IV SCH (05:07)
[2019-11-12 05:18] LABS: BASOPHILS % 0.5 % (0.0-2.0); EOSINOPHILS % 0.1 % (0.0-5.0); HEMATOCRIT. 28.5 % (42.0-52.0); HEMOGLOBIN. 9.1 g/dL (14.0-18.0); LYMPHOCYTES % 7.4 % (20.0-50.0); MEAN CORPUSCULAR HEMOGLOBIN 32.8 pg (28.0-32.0); MEAN CORPUSCULAR VOLUME 102.3 fL (80.0-94.0); MEAN PLATELET VOLUME 9.4 fl (7.4-10.4); MONOCYTES % 3.5 % (2.0-8.0); NEUTROPHILS % 88.5 % (40.0-76.0); PLATELET 268 x1000/uL (130-400); RED BLOOD CELL COUNT 2.78 mill/uL (4.7-6.1); RED CELL DISTRIBUTION WIDTH 15.4 % (11.6-14.6)
[2019-11-12] MEDS: INSULIN LISPRO 100 UNITS/ML SUBCUT SCH ×4 (05:25→23:15)
[2019-11-12] MEDS ORDERED: SODIUM POLYSTYRENE SULFONATE 15 G/60 ML BOT NG SCH (06:45)
[2019-11-12] MEDS: FAMOTIDINE 20MG/2ML VIAL IV SCH (08:39)
[2019-11-12] MEDS: LEVETIRACETAM 500MG PREMIX 100 ML IV SCH ×2 (08:39→20:12)
[2019-11-12 09:29] LABS: BG BASE EXCESS -5.5 mmol/L (-2.0-2.0); BG CARBOXYHEMOGLOBIN 0.3 % (0.5-1.5); BG FRACTION INSPIRED OXYGEN 90; BG HCO3 ACT 18.6 mmol/L (22.0-26.0); BG METHEMOGLOBIN 0.5 % (0.0-1.5); BG OXYHEMOGLOBIN 94.2 % (94.0-97.0); BG PCO2 31.3 mmHg (35.0-45.0); BG PH 7.392 (7.350-7.450); BG PO2 77.2 mmHg (75.0-100.0); BG SAMPLE SITE RIGHT RADIAL; BG TIDAL VOLUME(mL) 500 mL; BG TOTAL HEMOGLOBIN 9.3 g/dL (12.0-18.0); BG VENT MODE VENT - A/C; BG VENT RATE 16 set
[2019-11-12] MEDS: INSULIN GLARGINE UD 100 UNITS/ML SYR SUBCUT SCH ×2 (10:30→21:33)
[2019-11-12] MEDS ORDERED: SODIUM POLYSTYRENE SULFONATE 15 G/60 ML BOT PO NR (16:30)
[2019-11-12] MEDS ORDERED: LORAZEPAM 2MG/ML CPJ IV PRN (16:30)
[2019-11-12] MEDS ORDERED: MEROPENEM 500 MG in SODIUM CHLORIDE 0.9% 50 ML IV SCH (17:00)
[2019-11-12] MEDS ORDERED: CEFAZOLIN 1000MG PREMIX 50 ML IV SCH (18:00)
[2019-11-13] VITALS: BP 99/52
[2019-11-13] MEDS: IPRATROPIUM BROMIDE (0.02%) 0.5MG/2.5ML NEB HHN SCH (01:24)
== END 2019-11-13 08:24 | disposition expired | DRG 853 ==
LOC: ER 05:05 → ORIP 07:30 → MICUNO 09:04
PROVIDERS: ADMIT Internal Medicine; ATTEND Internal Medicine
PROC: 00C40ZZ Extirpation of Matter from Intracranial Subdural Space, Open Approach (ICD-10-PCS; principal; 2019-11-03)
PROC: 009430Z Drainage of Intracranial Subdural Space with Drainage Device, Percutaneous Approach (ICD-10-PCS; 2019-11-03)
PROC: 00U207Z Supplement Dura Mater with Autologous Tissue Substitute, Open Approach (ICD-10-PCS; 2019-11-03)
PROC: 00H002Z Insertion of Monitoring Device into Brain, Open Approach (ICD-10-PCS; 2019-11-03)
PROC: 4A103BD Monitoring of Intracranial Pressure, Percutaneous Approach (ICD-10-PCS; 2019-11-03)
PROC: 5A1955Z Respiratory Ventilation, Greater than 96 Consecutive Hours (ICD-10-PCS; 2019-11-03)
PROC: 0BH17EZ Insertion of Endotracheal Airway into Trachea, Via Natural or Artificial Opening (ICD-10-PCS; 2019-11-03)
DX: A41.01 Sepsis due to Methicillin susceptible Staphylococcus aureus (principal); I61.1 Nontraumatic intracerebral hemorrhage in hemisphere, cortical; I50.33 Acute on chronic diastolic (congestive) heart failure; E11.10 Type 2 diabetes mellitus with ketoacidosis without coma; I60.9 Nontraumatic subarachnoid hemorrhage, unspecified; J18.9 Pneumonia, unspecified organism; J96.01 Acute respiratory failure with hypoxia; R17 Unspecified jaundice; E87.0 Hyperosmolality and hypernatremia; G93.40 Encephalopathy, unspecified; N17.9 Acute kidney failure, unspecified; Z99.11 Dependence on respirator [ventilator] status; E87.5 Hyperkalemia; D64.9 Anemia, unspecified; D69.6 Thrombocytopenia, unspecified; Z66 Do not resuscitate; Z20.828 Contact with and (suspected) exposure to other viral communicable diseases; Y90.6 Blood alcohol level of 120-199 mg/100 ml
CPT/HCPCS: 36415; 36600; 70496; 71045; 76770; 78580; 80048; 80053; 80076; 80202; 80305; 80307; 80320; 80329; 81003; 82010; 82140; 82375; 82550; 82553; 82805; 82962; 83036; 83605; 83735; 83880; 84100; 84132; 84145; 84443; 84484; 85025; 85027; 85379; 86850; 86900; 87015; 87045; 87070; 87077; 87186; 87427; 87449; 88304; 89055; 93005; 93306; 93970; 94002; 94003; 94640; 94660; 99285; C1713; J0360; J0610; J0690; J0696; J1100; J1160; J1170; J1815; J1940; J1953; J2060; J2185; J2270; J2405; J2543; J2704; J2765; J3370; J3480; J3490; J7030; J7050; J7060; J7120; J7121; P9041; Q9967; G0480; U0003-CS